=== PATIENT | male | born 1965 | race Caucasian/White ===

== ENCOUNTER 2016-10-05 17:44 | Inpatient (IN) | payer OTHER ==
[~2016-10-05] VITALS: Ht 175.3 cm; Wt 79.4 kg
[~2016-10-05 17:44] MED LIST: ASPI-612 PO; CLON0.1T14 PO; DIPH50CA37 PO; Gabapentin PO; HYDR-3895 PO; MULT-70 PO
[2016-10-05 20:00] VITALS: BP 116/79
--- NOTE | 2016-10-05 20:48 | NUR ---
Admission Note Pt is a 51 year old male admitted on 09/25/2016 for ETOH dependence, arrived on the unit at 2047 accompanied by FINANCE EFFECTIVENESS MANAGER. Pt is NKA, denies history of seizures. Pt was able to provide urine drug screen. Upon admission, CIWA 4, BP 115/79, pulse 89, temp 98.5, respirations 16, Spo2 96%, weight 175, height 59. Pt reports his primary care provider is Dr. Sellers in [place], [place]. Pt denies being hospitalized within the past 30 days. Pt is able to understand and respond to all questions pertaining to his hospitalizations. Substance Abuse History is as follows: ETOH Vodka 10-12 shots/daily, last intake on 10/05/2016 of 10 shots. Pt has been using at this rate for the past 3 weeks. Pt has been admitted to [facility] from August 21, 2016 and discharged on August 28, 2016 previously. Pt reports he did not go to t[place] after discharging from [facility], which led him to relapse a few weeks after, as reports by pt. Pt reports his trigger to consuming ETOH is d/t frustration. Pt longest sober period is 13 years from 2004 2016. Treatment history is as follows: 1986 [place], [place] 30 days 1993 [place], [place] - 6 months 2016 [facility] 08/21/2016 - 08/28/2016 PMH: Pt denies any past medical history or surgical history. Pt did not bring any medications from home. Pt denies using any medications at home. Pt represents with a lump on forehead and bruises around bilateral eyes d/t a fall experienced from jumping over wall at home. Pt states he did not go to the hospital after the fall. Pictures taken and placed in chart. Pt is alert/oriented x4, anxious, reports body aches, face flushed, respirations unlabored, PERRLA. Lung sounds clear, heart rate regular, denies SOB/chest pain, denies n/v/d. bowel sounds active x4, abdomens soft. Education provided regarding fall preventions in hospitals, substance abuse, hepatitis C and smoking cessation educational material provided at bedside. Pt oriented to room and encouraged to notify staff with any concerns. Safety measures in place, call light within reach, side rails up x2, bed locked and in low position. Will continue to monitor.
[2016-10-05] MEDS ORDERED: LOPERAMIDE HCL 2 MG CAPSULE PO PRN ×2 (21:00)
[2016-10-05] MEDS ORDERED: LORAZEPAM 2 MG/1 ML VIAL IM PRN (21:00)
[2016-10-05] MEDS ORDERED: ONDANSETRON 4 MG/2 ML VIAL IM PRN (21:00)
[2016-10-05] MEDS ORDERED: ONDANSETRON ODT 4 MG TAB.RAPDIS SL PRN (21:00)
[2016-10-05] MEDS ORDERED: HYDROXYZINE PAMOATE 25 MG CAPSULE PO PRN (21:00)
[2016-10-05] MEDS ORDERED: DICYCLOMINE HCL 20 MG TABLET PO PRN (21:00)
[2016-10-05] MEDS ORDERED: CLONIDINE HCL 0.1 MG TABLET PO PRN (21:00)
[2016-10-05] MEDS ORDERED: MAG HYDROX/AL HYDROX/SIMETH 30 ML LIQUID UDC PO PRN (21:00)
[2016-10-05] MEDS ORDERED: ACETAMINOPHEN 325 MG TABLET PO PRN (21:00)
[2016-10-05] MEDS ORDERED: diphenhydrAMINE 50 MG CAPSULE PO PRN (21:00)
[2016-10-05] MEDS ORDERED: MAGNESIUM HYDROXIDE 30 ML LIQUID UDC PO PRN (21:00)
[2016-10-05] MEDS ORDERED: LORAZEPAM 1 MG TABLET PO PRN ×2 (21:00)
[2016-10-05] MEDS ORDERED: MIRALAX 17 GM POWD.PACK PO PRN (21:00)
[2016-10-05] MEDS ORDERED: THIAMINE HCL 200 MG/2 ML VIAL IM ONE (21:00)
[2016-10-05] MEDS: GABAPENTIN 300 MG CAPSULE PO SCH (21:51)
[2016-10-05 22:01] LABS: *AMPHETAMINE, URINE NEGATIVE (NEGATIVE); *BARBITURATE, URINE NEGATIVE (NEGATIVE); *CANNABINOID, URINE NEGATIVE (NEGATIVE); *COCCAINE, URINE NEGATIVE (NEGATIVE); *OPIATE, URINE NEGATIVE (NEGATIVE); *PHENCYCLIDINE SCREEN,URINE NEGATIVE (NEGATIVE)
[2016-10-05] MEDS: IBUPROFEN 400 MG TABLET PO PRN (22:24)
--- NOTE | 2016-10-05 22:24 | NUR ---
PRN Administration Pt reported pain in neck and knees, rated 5/10. Motrin 400mg PRN administered. Safety measures in place. Will continue to monitor.
--- NOTE | 2016-10-05 22:55 | NUR ---
PRN Reassessment - PRN Administration 1565 Upon reassessment, pt reports pain subsiding in neck and knees, rated 2/10. Pt requested aid to help him sleep. Benadryl 50mg PRN administered. Safety measures in place. Will continue to monitor
[2016-10-05 23:48] LABS: ALBUMIN 3.3 g/dL (3.4-5.0); BILIRUBIN,TOTAL 0.7 mg/dL (0.2-1.0); CALCIUM 7.7 mg/dL (8.5-10.1); CREATININE 1.2 mg/dL (0.6-1.3); POTASSIUM 2.9 mmol/L (3.5-5.1); TOTAL PROTEIN, SERUM 6.8 g/dL (6.4-8.2)
--- NOTE | 2016-10-05 23:55 | NUR ---
PRN Reassessment Upon reassessment, pt is in bed, eyes closed, resting, respirations unlabored, no s/s of acute distress noted. Safety measures in place. Will continue to monitor.
[2016-10-05 23:58] LABS: BASOPHILS % (AUTO) 0.4 % (0.0-2.0); EOSINOPHILS # (AUTO) 0.1 K/uL (0.0-0.7); EOSINOPHILS % (AUTO) 0.7 % (0.0-7.0); HEMATOCRIT 42.6 % (36.7-47.1); HEMOGLOBIN 15.1 g/dL (12.5-16.3); HIV-1 p24 ANTIGEN NON REACTIVE (NONREACTIVE); HIV-1/2 ANTIBODY NON REACTIVE (NONREACTIVE); LYMPHOCYTES # (AUTO) 2.1 K/uL (20.0-40.0); LYMPHOCYTES % (AUTO) 25.7 % (20.5-51.5); MEAN CORPUSCULAR HEMOGLOBIN 34.4 uug (23.8-33.4); MEAN CORPUSCULAR HGB CONC 36 g/dL (32.5-36.3); MONOCYTES # (AUTO) 0.6 K/uL (2.0-10.0); MONOCYTES % (AUTO) 6.9 % (0.0-11.0); NEUTROPHILS # (AUTO) 5.5 K/uL (1.8-8.9); NEUTROPHILS % (AUTO) 66.3 % (38.5-71.5); PLATELET COUNT (AUTO) 257 K/uL (152-348); RED BLOOD CELL COUNT(AUTO) 4.39 MIL/uL (4.06-5.63); RED CELL DISTRIBUTION WIDTH 14.1 % (12.1-16.2); WHITE BLOOD COUNT (AUTO) 8.3 K/uL (3.6-10.2)
[2016-10-06] VITALS: BP 126/80
[2016-10-06] LABS: THYROID STIMULATING HORMONE 1.623 mIU/mL (0.358-3.740)
--- NOTE | 2016-10-06 | NUR ---
Vital Signs BP 126/80, pulse 86, respirations 16, SpO2 97%, temp 98.1, no reports of pain 0/10. CIWA assessment deferred d/t pt sleeping, to assess while pt is awake as ordered. Safety measures in place, Will continue to monitor
--- NOTE | 2016-10-06 03:59 | NUR ---
Potassium Value Notified Dr. Thomas of Potassium 2.9 Administered K-Dur 40 MEQ, per MD orders. Safety measures in place. Will continue to monitor.
[2016-10-06 04:00] VITALS: BP 111/72
[2016-10-06] MEDS ORDERED: POTASSIUM CHLORIDE 20 MEQ TAB.PRT.SR PO ONE ×2 (04:00→09:45)
--- NOTE | 2016-10-06 04:00 | NUR ---
Vital Signs BP 111/72, pulse 104, respirations 16, SpO2 98%, temp 98.2, no reports of pain 0/10. CIWA assessment deferred d/t pt sleeping, to assess while pt is awake as ordered. Safety measures in place, Will continue to monitor
[2016-10-06] MEDS ORDERED: POTASSIUM CHLORIDE 20 MEQ TAB.PRT.SR ONE (04:05)
--- NOTE | 2016-10-06 07:00 | NUR ---
End of Shift Pt is a 51 year old male admitted on 10/05/2016 for ETOH dependence, placed on 4 day Ativan taper to be started today. Pt reported on consuming vodka 10-12 shots/daily, last intake of 10 shots on . NKA, regular diet, fall/seizure precautions denies history of seizures and full code. Pt denies PMH. Pt has a lump on forehead and bruises around bilateral eyes d/t a fall experienced from jumping over wall at home. Pt states he did not go to the hospital after the fall. Pictures taken and placed in chart. During shift, Vitamin B1 injection administered, Motrin 400mg PRN administered for neck and knee pain, effective. Potassium of 2.9 supplemented with K-Dur 40 MEQ, per orders. Benadryl 50mg PRN administered for sleep. Pt slept for 6 hours, intake of 1242 ml PO and voids x2. Safety measures in place, call light within reach, side rails up x2, bed locked and in low position. Endorsed to day shift nurse.
--- NOTE | 2016-10-06 07:17 | NUR ---
Start of Shift Notes: Received patient in the room. Alert and oriented x 4. Verbally responsive. Able to make his needs known. Respirations even and unlabored. No SOB noted. Skin warm and dry to touch. Noted with presence of bruising on the face. Denies any complains of pain or discomfort. Appears flushed with BUE tremors. Abdomen soft and non-distended with (+) BS in all 4 quadrants. No complains of N/V/D or constipation noted. No complains of abdominal discomfort. Voids independently. Denies any complains of bladder pain. Ambulatory ad steven with steady gait. Patient is a 51 year old male admitted for ETOH dependence who was placed on a 4-day Ativan taper that will be started today. Denies any past medical hx. NKA. FULL CODE. Regular diet. On fall and seizure precautions. PRN Motrin and Benadryl were given during the night. K+ level 2.9L. Replaced with 40 meq of K+ chloride. No adverse reactions noted. Educated patient on his current plan of care for the day and his medication regimen. Encouraged oral fluid intake and encouraged group participation to learn new skills to prevent relapse. Will continue to monitor closely. Safety precautions in place.
[2016-10-06 08:00] VITALS: BP 136/88
[2016-10-06] MEDS ORDERED: TUBERCULIN,PURIF.PROT.DERIV. 5 TU/0.1 ML TEST ID ONE (09:00)
[2016-10-06] MEDS: FOLIC ACID 1 MG TABLET PO SCH (09:24)
[2016-10-06] MEDS: THIAMINE HCL 100 MG TABLET PO SCH (09:24)
[2016-10-06] MEDS: MULTIVITAMINS,THERAPEUTIC TABLET PO SCH (09:24)
[2016-10-06] MEDS: LORAZEPAM 1 MG TABLET PO SCH ×3 (09:24→21:34)
[2016-10-06] MEDS: GABAPENTIN 300 MG CAPSULE PO SCH ×3 (09:24→21:34)
[2016-10-06] MEDS: IBUPROFEN 400 MG TABLET PO PRN ×2 (09:24→23:28)
--- NOTE | 2016-10-06 09:24 | NUR ---
Motrin 400 mg PO given: Patient was given Motrin 400 mg PO as ordered for neck pain 10/28. Non-pharmacological interventions were ineffective.
--- NOTE | 2016-10-06 10:24 | NUR ---
Re-assessment: Per patient, PRN Motrin was effective in reducing neck pain. PL 06/30.
--- NOTE | 2016-10-06 10:28 | NUR ---
KcL 40 meq PO given: Patient was given KcL 40meq PO at this time for K+ replacement.
[2016-10-06 12:00] VITALS: BP 129/90
[2016-10-06 16:00] VITALS: BP 126/86
--- NOTE | 2016-10-06 19:03 | NUR ---
End of Shift Notes: Patient is a 51 year old male admitted for ETOH dependence who was placed on a 4-day Ativan taper as ordered which was started today. Patient is tolerating taper well. No adverse reactions noted. Prior to admission, patient was using 10-12 shots of Vodka x 3 weeks. VS monitored closely q 4 hours. No significant abnormalities noted in the patients VS noted. Withdrawal symptoms were closely monitored. Patient presented with tremors, headache, and sweating. Initial CIWA 7. Last CIWA 3. Per patient, Ativan has been helping him with his withdrawal symptoms. Labs reviewed. K+ level 2.9L. replaced with 40meq PO as ordered during the shift. No s/s of hypokalemia noted. Motrin 400 mg PO given for complain of 5/10 neck pain and headache with help after 1 hour. Oral fluids encouraged. Unable to participate in group at this time due to his withdrawal symptoms. All needs met and attended. On fall and seizure precautions. Safety precautions in place. Will continue to monitor closely.
--- NOTE | 2016-10-06 19:30 | NUR ---
START OF SHIFT-- Patient is a 51 year old male admitted for ETOH dependence who was placed on a 4-day Ativan taper as ordered which was started today.Pt denies any PMH. Patient is tolerating taper well. No adverse reactions noted. VS have been stable. Last CIWA 3. Oral fluids encouraged.Pt has been unable to participate in groups during the day due to his withdrawal symptoms. All needs met and attended. On fall and seizure precautions. Safety precautions in place. Will continue to monitor closely.
[2016-10-06 20:00] VITALS: BP 147/92
--- NOTE | 2016-10-06 23:29 | NUR ---
PRN MOTRIN GIVEN ORDERED FOR C/O HEADACHE,PER PT REQUEST.PAIN LEVEL 6/10.WILL MONITOR.
[2016-10-07] VITALS: BP 135/84
--- NOTE | 2016-10-07 00:30 | NUR ---
PRN F/U-- HEADACHE RELIEVED.PT RESTING IN BED WITH EYES CLOSED.NO S/S OF DISTRESS NOTED.
[2016-10-07 04:00] VITALS: BP 115/80
--- NOTE | 2016-10-07 06:46 | NUR ---
END OF SHIFT-- Patient is a 51 year old male admitted for ETOH dependence who was placed on a 4-day Ativan taper as ordered which was started today. Patient is tolerating taper well. No adverse reactions noted. VS have been stable. Last CIWA 1. Oral fluids encouraged.PRN Motrin given for pain.Pt is med compliant. All needs met and attended.Pt slept 6 hrs;fluid intake was 1400 mls,voided x 3. On fall and seizure precautions. Safety precautions in place. Will continue to monitor .
--- NOTE | 2016-10-07 07:59 | NUR ---
Start of shift note; Patient is AOX4. Patient is a 51 y/o male admitted on 10/05/16 for ETOH dependence. Patient is on full code status, regular diet, NKA. Patient was placed on a 4 day Ativan taper, no adverse reactions noted. Educated patient regarding treatment plan and medication regime, verbalized understanding. Patient is on fall and seizure precaution. All safety measures secured. Will continue to monitor patient.
[2016-10-07 08:00] VITALS: BP 130/83
[2016-10-07 08:06] LABS: BASOPHILS # (AUTO) 0.1 K/uL (0.0-8.0); BASOPHILS % (AUTO) 0.9 % (0.0-2.0); EOSINOPHILS # (AUTO) 0.2 K/uL (0.0-0.7); EOSINOPHILS % (AUTO) 2.6 % (0.0-7.0); HEMATOCRIT 40.2 % (36.7-47.1); HEMOGLOBIN 14.1 g/dL (12.5-16.3); LYMPHOCYTES # (AUTO) 1.7 K/uL (20.0-40.0); LYMPHOCYTES % (AUTO) 23.6 % (20.5-51.5); MEAN CORPUSCULAR HEMOGLOBIN 34.5 uug (23.8-33.4); MEAN CORPUSCULAR HGB CONC 35 g/dL (32.5-36.3); MEAN CORPUSCULAR VOLUME 98.3 fL (73.0-96.2); MONOCYTES # (AUTO) 0.5 K/uL (2.0-10.0); MONOCYTES % (AUTO) 7.5 % (0.0-11.0); NEUTROPHILS # (AUTO) 4.5 K/uL (1.8-8.9); NEUTROPHILS % (AUTO) 65.4 % (38.5-71.5); PLATELET COUNT (AUTO) 196 K/uL (152-348); RED BLOOD CELL COUNT(AUTO) 4.09 MIL/uL (4.06-5.63); RED CELL DISTRIBUTION WIDTH 14.2 % (12.1-16.2)
[2016-10-07 08:17] LABS: HCV AB <0.1 s/co ratio (0.0-0.9); HEPATITIS B CORE AB, IgM Negative (Negative); HEPATITIS B SURFACE AG Negative (Negative)
[2016-10-07 08:17] LABS: CALCIUM 7.7 mg/dL (8.5-10.1); CREATININE 1.1 mg/dL (0.6-1.3); MAGNESIUM 2.2 mg/dL (1.8-2.4); PHOSPHOROUS 3.2 mg/dL (2.5-4.9); POTASSIUM 4.1 mmol/L (3.5-5.1)
[2016-10-07] MEDS: GABAPENTIN 300 MG CAPSULE PO SCH ×3 (08:50→21:08)
[2016-10-07] MEDS: MULTIVITAMINS,THERAPEUTIC TABLET PO SCH (08:50)
[2016-10-07] MEDS: LORAZEPAM 1 MG TABLET PO SCH ×4 (08:51→21:08)
[2016-10-07] MEDS: THIAMINE HCL 100 MG TABLET PO SCH (08:51)
[2016-10-07] MEDS: FOLIC ACID 1 MG TABLET PO SCH (08:51)
[2016-10-07 12:00] VITALS: BP 140/98
[2016-10-07 16:00] VITALS: BP 138/95
--- NOTE | 2016-10-07 18:21 | NUR ---
End of shift note; Patient is AOX4.Patient is a 51 y/o male admitted on 10/05/16 for ETOH dependence. Patient is on full code status, regular diet, NKA. Patient was placed on a 4 day Ativan taper, no adverse reactions noted. Educated patient regarding treatment plan and medication regime, verbalized understanding. Patient is on fall and seizure precaution. All safety measures secured. Patient remained compliant with treatment plan and medication regime. Medications were effective in reducing withdrawal symptoms. Met all needs.
--- NOTE | 2016-10-07 19:30 | NUR ---
START OF SHIFT NOTE : Patient is a 51 y/o male admitted on 10/05/16 for ETOH dependence. Patient is on full code status, regular diet, NKA. Patient was placed on a 4 day Ativan taper, started on 10/06/2016, no adverse reactions noted. Educated patient regarding treatment plan and medication regime, verbalized understanding. Patient is on fall and seizure precaution. Safety measures in place : bed on lowest position with side rails x2 up for safety, call light within reach. Will continue to monitor closely and offer help.
[2016-10-07 20:00] VITALS: BP 144/97
[2016-10-08] VITALS: BP 146/89
--- NOTE | 2016-10-08 06:47 | NUR ---
END OF SHIFT NOTE : Patient is a 51 y/o male admitted on 10/05/16 for ETOH dependence. Patient is on full code status, regular diet, NKA. Patient was placed on a 4 day Ativan taper, started on 10/06/2016, no adverse reactions noted. Educated patient regarding treatment plan and medication regime, verbalized understanding. Patient is on fall and seizure precaution. Pt remains compliant with the treatment plan. No PRNs were given during my shift. V/S remain WNL. RR=16, even and unlabored, lungs clear upon auscultation, abdomen soft and non- distended. Pt denies nausea, vomiting and diarrhea. LAST CIWA=1 at 0400 , INTAKE= 100 ml, voided x 1, slept 5 hours. Safety measures in place : bed on lowest position with side rails x2 up for safety, call light within reach. Will continue to monitor closely and offer help.
--- NOTE | 2016-10-08 07:39 | NUR ---
BEGINNING OF SHIFT Patient endorsement report received from contract attorney nurse, all pertinent information discussed. patient is a 51 year old male with NKA, and full code, with admitting Dx: ETOH dependence. Patient currently on a 5 day Ativan taper as ordered and is scheduled to begin day 3 of taper. Per contract attorney report patient received no prns, Patient with last ciwa score of: 1. Per contract attorney patient slept for 5 hours. Patient received awake, alert and oriented x4, vital signs stable. patient educated regarding plan of care for the day and medication regimen, safety measures in place. will continue to monitor.
[2016-10-08 08:10] VITALS: BP 138/88
[2016-10-08] MEDS: FOLIC ACID 1 MG TABLET PO SCH (08:40)
[2016-10-08] MEDS: GABAPENTIN 300 MG CAPSULE PO SCH ×2 (08:40→14:04)
[2016-10-08] MEDS: MULTIVITAMINS,THERAPEUTIC TABLET PO SCH (08:41)
[2016-10-08] MEDS: THIAMINE HCL 100 MG TABLET PO SCH (08:41)
[2016-10-08] MEDS: LORAZEPAM 1 MG TABLET PO SCH ×3 (08:41→21:45)
[2016-10-08 12:19] VITALS: BP 133/85
[2016-10-08] MEDS ORDERED: METHYL SALICYLATE/MENTHOL CREAM 28 GM TUBE TOP PRN (13:30)
[2016-10-08 17:40] VITALS: BP 144/98
--- NOTE | 2016-10-08 18:45 | NUR ---
END OF SHIFT Patient alert and oriented x4, vital signs were stable during shift. Patient compliant with therapeutic plan of care. Patient with admitting Dx: ETOH dependence. Patient placed an Ativan taper and is currently on day 3 of taper, Well tolerated, no ASE noted. Patient encouraged adequate PO fluid intake as tolerated. 0900 assessment patient presented with tremors that can be felt but not seen, and anxiety with ciwa score of: 3; 1300 assessment patient presented with: tremors that can be felt but not seen and mild anxiety with ciwa score of: 3; 1700 assessment patient presented with; tremors that can be felt but not seen, and mild anxiety with ciwa score of: 3. Administered no PRNs during shift. Abdomen is soft and non distended, bowel sounds heard in all quadrants. Patient encouraged to attend group therapies/sessions to learn new coping skills to prevent relapse, noted attending and participating, denies SI/HI, noted self motivated towards sobriety. Patients safety measures as in place. All needs met and rendered, will continue to monitor closely. Patient endorsed to cook night nurse all pertinent information discussed.
--- NOTE | 2016-10-08 19:15 | NUR ---
START OF SHIFT Received 51 year old male patient admitted on 10/05/16 for ETOH dependency. Pt is full code with NKA. He denies PMHx. He reports drinking ETOH (vodka) 10-12 shots daily for 3 weeks at this rate. Last dose was 10 shots on 10/05/16. Pt denies history of seizures. Pt placed on 4 day Ativan taper and tolerating well. Per endorsement, pt noted with bruises on bilateral eyes, and lump on forehead. Pt did not receive or request PRN medications. Pt is alert and oriented x4, breathing is even and unlabored, safety measures in place. Will continue to monitor.
[2016-10-08 20:00] VITALS: BP 142/105
[2016-10-08] MEDS ORDERED: GABAPENTIN 300 MG CAPSULE PO SCH (21:00)
--- NOTE | 2016-10-08 21:49 | NUR ---
PRN CLONIDINE Pt noted with increased BP: 142/105 HR: 105. Pt denies headache or dizziness. PRN Clonidine administered as ordered. Will continue to monitor effectiveness of medication.
[2016-10-08 22:49] VITALS: BP 142/99
--- NOTE | 2016-10-08 22:49 | NUR ---
PRN CLONIDINE REASSESSMENT PRN medication effective. BP decreased 142/99 HR:97. Breathing is even and unlabored, respirations 16. Safety measures in place. Will continue to monitor.
[2016-10-09] VITALS: BP 143/96
--- NOTE | 2016-10-09 | NUR ---
CIWA DEFERRED CIWA deferred d/t pt lying in bed with eyes closed and is sleeping. No facial grimacing noted. Respirations 16. Breathing even and unlabored. Safety measures in place. Will monitor.
[2016-10-09 04:00] VITALS: BP 137/86
--- NOTE | 2016-10-09 04:00 | NUR ---
CIWA DEFERRED CIWA deferred d/t pt lying in bed with eyes closed and is sleeping. No facial grimacing noted. Respirations 16. Breathing even and unlabored. Safety measures in place. Will continue to monitor.
--- NOTE | 2016-10-09 07:14 | NUR ---
END OF SHIFT Pt is a 51 year old male patient admitted on 10/05/16 for ETOH dependency. Pt is full code with NKA. He denies PMHx. At 2149 pt received PRN Clonidine d/t increased BP. PRN medication was effective, BP and HR decreased. He slept a total of 7 hrs, Intake: 1091 mL, Void: x1, BM: 0, CIWA:2. Pt is alert and oriented x4, breathing is even and unlabored, safety measures in place. Endorsed to oncoming shift.
--- NOTE | 2016-10-09 08:16 | NUR ---
BEGINNING OF SHIFT Patient endorsement report received from silver miner blasting nurse, all pertinent information discussed. patient is a 51 year old male with NKA, and full code, with admitting Dx: ETOH dependence. Patient currently on a 5 day Ativan taper as ordered and is scheduled to begin day 4 of taper. Per silver miner blasting report patient received prn: clonidine medication effective as per silver miner blasting. Patient with last ciwa score of: 2. Per silver miner blasting patient slept for 7 hours. Patient received awake, alert and oriented x4, vital signs stable. patient educated regarding plan of care for the day and medication regimen, safety measures in place. will continue to monitor.
[2016-10-09 08:24] VITALS: BP 127/90
[2016-10-09] MEDS ORDERED: GABAPENTIN 300 MG CAPSULE PO SCH (09:00)
[2016-10-09] MEDS: LORAZEPAM 1 MG TABLET PO SCH ×2 (09:05→20:47)
[2016-10-09] MEDS: FOLIC ACID 1 MG TABLET PO SCH (09:06)
[2016-10-09] MEDS: THIAMINE HCL 100 MG TABLET PO SCH (09:06)
[2016-10-09] MEDS: MULTIVITAMINS,THERAPEUTIC TABLET PO SCH (09:06)
[2016-10-09] MEDS ORDERED: AMLODIPINE 5 MG TABLET PO SCH (13:00)
[2016-10-09 13:26] VITALS: BP 137/91
[2016-10-09] MEDS: GABAPENTIN 300 MG CAPSULE PO SCH ×2 (14:37→20:47)
[2016-10-09] MEDS: AMLODIPINE 5 MG TABLET PO SCH (14:39)
[2016-10-09 17:52] VITALS: BP 134/98
--- NOTE | 2016-10-09 18:55 | NUR ---
END OF SHIFT Patient alert and oriented x4, vital signs were stable during shift. Patient compliant with therapeutic plan of care. Patient with admitting Dx: ETOH dependence. Patient placed an Ativan taper and is currently on day 4 of taper, Well tolerated, no ASE noted. Patient encouraged adequate PO fluid intake as tolerated. 0900 assessment patient presented with tremors that can be felt but not seen, and anxiety with ciwa score of: 3; 1300 assessment patient presented with: tremors that can be felt but not seen and mild anxiety with ciwa score of: 3; 1700 assessment patient presented with; tremors that can be felt but not seen, and mild anxiety with ciwa score of: 3. Administered no PRNs during shift. Abdomen is soft and non distended, bowel sounds heard in all quadrants. Patient encouraged to attend group therapies/sessions to learn new coping skills to prevent relapse, noted attending and participating, denies SI/HI, noted self motivated towards sobriety. Patients safety measures as in place. All needs met and rendered, will continue to monitor closely. Patient endorsed to shift coordinator nurse all pertinent information discussed.
[2016-10-09 20:00] VITALS: BP 129/82
--- NOTE | 2016-10-09 20:00 | NUR ---
Start of Shift Pt is 51-year old, male, admitted for ETOH dependency. Pt is Full Code, on Regular Diet and with NKA. Pt denies PMHx. Pt reports drinking ETOH (vodka) 10-12 shots daily for 3 weeks. Pt denies history of seizures. Pt placed on 4-day Ativan taper and tolerating well. Last dose is 10/09/2016 at 2100. Pt tolerates taper well. Pt noted with lump on forehead. Pt is AAOx4, with mild anxiety noted. With flushed skin observed. Pt is ambulatory with steady gait, with no open skin noted. No SOB noted, not in respi distress. Fall, universal, seizure and safety prec in place. Call light within reach. Kept pt warm, dry and comfortable. All needs met. Latest CIWA=2. Will continue to monitor pt.
[2016-10-10] VITALS: BP 132/85
--- NOTE | 2016-10-10 04:05 | NUR ---
RN note Pt refused 0400 Vital Signs check and CIWA assessment despite explanation of risks and benefits. RR=14. No SOB noted. Will continue to monitor pt.
--- NOTE | 2016-10-10 07:16 | NUR ---
End of Shift Pt is 51-year old, male, admitted for ETOH dependency. Pt is Full Code, on Regular Diet and with NKA. Pt denies PMHx. Pt reports drinking ETOH (vodka) 10-12 shots daily for 3 weeks. Pt denies history of seizures. Pt placed on 4-day Ativan taper and tolerating well. Last dose is 10/09/2016 at 2100. Pt tolerates taper well. Pt noted with lump on forehead. Pt is AAOx4, with mild anxiety noted. With flushed skin observed. Pt is ambulatory with steady gait, with no open skin noted. No SOB noted, not in respi distress. Fall, universal, seizure and safety prec in place. Call light within reach. Kept pt warm, dry and comfortable. All needs met. Latest CIWA=2, slept for 6 hours. Endorsed to AM shift nurse for continuity of care.
--- NOTE | 2016-10-10 07:30 | NUR ---
Start of Shift Report received from technical testing engineer nurse. Pt is 51-year old, male, admitted for ETOH dependency. Pt is Full Code, on Regular Diet and denies any food or drug allergies pt is on fall and seizure precautions. Pt denies PMHx. Pt reports drinking ETOH (vodka) 10-12 shots daily for 3 weeks. Pt denies history of seizures. Pt placed on 4-day Ativan taper which has been completed. Pt tolerated taper well. Pt noted with lump on forehead. Pt did not receive any PRN medication last night his last CIWA was a 2. Pt is AAOx4, with mild anxiety noted. Pt is ambulatory with steady gait, with no open skin noted. Call light within reach all safety measures in place.
[2016-10-10 08:00] VITALS: BP 124/84
[2016-10-10] MEDS: THIAMINE HCL 100 MG TABLET PO SCH (08:45)
[2016-10-10] MEDS: AMLODIPINE 5 MG TABLET PO SCH (08:46)
[2016-10-10] MEDS: MULTIVITAMINS,THERAPEUTIC TABLET PO SCH (08:46)
[2016-10-10] MEDS: GABAPENTIN 300 MG CAPSULE PO SCH ×3 (08:46→21:02)
[2016-10-10] MEDS: FOLIC ACID 1 MG TABLET PO SCH (08:46)
[2016-10-10 12:00] VITALS: BP 132/86
[2016-10-10] MEDS: IBUPROFEN 600 MG TABLET PO PRN ×2 (14:13→21:08)
[2016-10-10 16:00] VITALS: BP 111/73
--- NOTE | 2016-10-10 19:11 | NUR ---
End Of Shift Report given to shift coordinator. Pt is 51-year old, male, admitted for ETOH dependency. Pt is Full Code, on Regular Diet and denies any food or drug allergies pt is on fall and seizure precautions. Pt denies PMHx. Pt denies history of seizures. Pt placed on 4-day Ativan taper which has been completed. Pt tolerated taper well. Pt noted with lump on forehead. Pt Received PRN Motrin 600mg for head ache. Medication was effective. Pts last CIWA was a 2. Pt stated that the medications are working well at controlling the withdrawal symptoms, evidenced by low assessment scores during the day ranging from 4-2. Pt ate all of his meals. Pt remains compliant with the treatment plan. Pts vital signs within normal limits, A/Ox4, denies chest pain. Respirations even unlabored, lungs clear upon auscultation abdomen soft and non- distended. Pt denies nausea, vomiting and diarrhea. Pt total fluid intake was 3071ml with 5 voids and 2 stool. Safety measures in place, call light within reach. All pertinent information discussed with shift coordinator, endorsement given to shift coordinator nurse.
[2016-10-10 20:00] VITALS: BP 131/87
--- NOTE | 2016-10-10 20:00 | NUR ---
2000 Patient received awake, alert and lying in low semi-fowlers position of comfort, watching television. Patient responds to nurse's greeting and introduction with direct eye contact, a smile and, " Hi, I'm doing much better than last week". Patient is oriented to person, place, day, date, time and his personal situation. Patient's overall color is pink and his skin is warm, dry and intact. Patient noted to have healing, intact moderate-sized, bruised bump on his forehead, near the middle part. Patient also noted to have healing bruised periorbital areas bilaterally. Patient states, " Oh, you should have seen me last week. The bruises and my head bump were way worse and darker!" Patient states that he fell while he was inebriated. Patient's lung sounds are clear bilaterally and active bowel sounds are noted X 4 abdominal Quads, per auscultation. Patient states that he has been eating and taking fluids ad steven with no real gastric issues at this time and he states further that he has been going to [email or web address] consistently for the most part. Vital signs are: 98.4-99-18 131/87, O2 Sat 98%, CIWA 2. Patient was admitted on 10/05/16 for Alcohol withdrawal and he has recently completed a 4-Day Ativan medication taper. Patient denies any pain or other discomforts at this time and he offers no requests for anything. Fall/Precautions continues. Patient is friendly, cooperative and verbally appropriate when nurse interacts with him and he moves all his extremities fully WNL. Bed is locked and in lowest position, bed rails are up X 2 and call light within patient's easy reach.
--- NOTE | 2016-10-10 21:08 | NUR ---
PRN MEDICATION: Prn Motrin 600 mg p.o. given per patient's request for increasing neck pain, 3-4/10 pain scale. Patient states, " I want to catch it early, before it gets to be like a 6, which it was last night".
--- NOTE | 2016-10-10 22:08 | NUR ---
REASSESSMENT PRN MEDICATION: Patient is sleeping soundly with eyes closed and respirations quiet, even, unlabored at 14.
[2016-10-11] VITALS: BP 121/78
--- NOTE | 2016-10-11 04:00 | NUR ---
Patient refused to be awakened for V/S at this time. Respirations regular, unlabored at 12.
--- NOTE | 2016-10-11 06:00 | NUR ---
0600 Patient slept a total of 7 hours and he was up to the bathroom for 2 voids and no stools. Total intake was 1,296 ml p.o. Prn medication given noted separately per floor protocol. V/SS afebrile, CIWA 2. Patient is presently sleeping comfortably in stable condition with eyes closed and respirations even, unlabored at 12.
--- NOTE | 2016-10-11 07:47 | NUR ---
START OF SHIFT Received patient from evening or night nurse supervisor nurse. 51 year old male, admitted on 10/05/16 for ETOH withdrawals. Pt is full code regular diet on fall and seizure precautions. NKDA/NKFA. Patient has completed ordered 4 day Ativan taper. Most recent CIWA is 2. Denies medical history. V/S remain WNL. PRN Motrin administered and effective. Pt slept for 7 hours. Skin is intact, but pt presents with bilateral bruising around eyes and lump on forehead related to fall prior to admission, healing as expected. Denies pain. A/O x4. Pt is currently sleeping in bed. All safety measures in place per hospital policy. Bed in lowest position, side rails up x2 and padded, call-light within reach. Will continue to monitor.
[2016-10-11 08:13] VITALS: BP 121/78
[2016-10-11] MEDS: THIAMINE HCL 100 MG TABLET PO SCH (09:04)
[2016-10-11] MEDS: MULTIVITAMINS,THERAPEUTIC TABLET PO SCH (09:04)
[2016-10-11] MEDS: GABAPENTIN 300 MG CAPSULE PO SCH ×3 (09:04→20:15)
[2016-10-11] MEDS: AMLODIPINE 5 MG TABLET PO SCH (09:04)
[2016-10-11] MEDS: FOLIC ACID 1 MG TABLET PO SCH (09:04)
[2016-10-11] MEDS: IBUPROFEN 600 MG TABLET PO PRN ×2 (09:07→20:15)
--- NOTE | 2016-10-11 09:07 | NUR ---
PRN MOTRIN Pt c/o 08/28 neck pain. Non pharmacological methods not effective to relieve pain. PRN Motrin administered as ordered, will reassess.
--- NOTE | 2016-10-11 10:07 | NUR ---
REASSESSMENT Pt denies pain at this time, medication was effective.
[2016-10-11 12:39] VITALS: BP 139/88
--- NOTE | 2016-10-11 13:33 | NUR ---
URINE COLLECTED FOR D/C Urine was collected and is being taken down to lab by ANIMAL CARE WORKER.
[2016-10-11 14:00] LABS: *AMPHETAMINE, URINE NEGATIVE (NEGATIVE); *BARBITURATE, URINE NEGATIVE (NEGATIVE); *CANNABINOID, URINE NEGATIVE (NEGATIVE); *COCCAINE, URINE NEGATIVE (NEGATIVE); *OPIATE, URINE NEGATIVE (NEGATIVE); *PHENCYCLIDINE SCREEN,URINE NEGATIVE (NEGATIVE)
[2016-10-11 17:47] VITALS: BP 136/85
--- NOTE | 2016-10-11 19:09 | NUR ---
END OF SHIFT Endorsed to [employer] developer nurse. 51 year old male, admitted on 10/05/16 for ETOH withdrawals. Pt is full code regular diet on fall and seizure precautions. Denies allergies. Patient has completed ordered 4 day Ativan taper. Most recent CIWA is 1 at 1700. Denies medical history. V/S remain WNL. PRN Motrin administered and effective. UDS collected, results are printed and in chart. Skin is intact, but pt presents with bilateral bruising around eyes and lump on forehead related to fall prior to admission, healing as expected, photos in chart. Denies pain. Pt attends group, verbalizes feelings and has adequate caloric intake. All safety measures in place per hospital policy. Bed in lowest position, side rails up x2 and padded, call-light within reach. Will continue to monitor.
[2016-10-11 20:00] VITALS: BP 130/86
--- NOTE | 2016-10-11 20:00 | NUR ---
2000 Patient received awake, alert and lying in low semi-stafford's position, watching television. Patient responds to nurse's greeting with a smile and " Hi, how are you tonight?" Patient is oriented to person, place, day, date, time and his personal situation. Patient states that he is happy about and is looking forward to his upcoming discharge tomorrow. Patient states that he is feeling better and better overall and he states further that he continues to follow his therapeutic plan and be compliant with his medication regimen as well as everything else that he is 'supposed to be doing here'. Patient continues to eat and take fluids ad steven with no gastric issues and he feels and observes that his periorbital bruising and bruised, intact forehead bump continue to heal well. Vital signs are: [id number] 130/86, O2 sat 98%, CIWA 1. Patient offers no requests at this time. Patient was admitted on 10/05/16 for Alcohol withdrawal and ordered Ativan medication taper has been completed. Patient is friendly, smiles easily, is cooperative and verbally appropriate when interacting with nurse. Bed is locked and in lowest position, bed rails are up X 2 and call light within patient's easy reach.
--- NOTE | 2016-10-11 20:15 | NUR ---
PRN MEDICATION: Prn Motrin 600 mg p.o. given per request for patient's c/o increasing right neck discomfort, 3-4/10 pain scale. Patient states, " I like to catch it before it gets too uncomfortable".
--- NOTE | 2016-10-11 21:15 | NUR ---
REASSESSMENT PRN MEDICATION: Patient is lying quietly watching television. Patient states that prn medication was effective, as neck discomfort at about 1/10 pain scale.
[2016-10-11] MEDS ORDERED: DIPH50CA37 PO (22:00)
[2016-10-11] MEDS ORDERED: Gabapentin PO (22:00)
[2016-10-11] MEDS ORDERED: AMLO5TAB2 PO (22:00)
[2016-10-11] MEDS ORDERED: METH28OI2 TOP (22:00)
[2016-10-11] MEDS ORDERED: HYDR-3895 PO (22:00)
[2016-10-11] MEDS ORDERED: Ibuprofen PO (22:00)
--- NOTE | 2016-10-12 | NUR ---
Patient refuses to be awakened for V/S at this time.
--- NOTE | 2016-10-12 04:00 | NUR ---
0400 Patient refuses to be awakened for V/S at this time.
--- NOTE | 2016-10-12 06:30 | NUR ---
0630 Patient slept a total of 7. 25 hours and he was up to the bathroom for 1 void and no stools.. Total intake was 500 ml p.o. Prn medication given noted separately per floor protocol. V/SS afebrile, CIWA 1. Patient is presently sleeping comfortably with eyes closed and respirations even, unlabored at 12. Patient is in stable condition at this time.
--- NOTE | 2016-10-12 07:10 | NUR ---
start of shift note: received pt from awake overnight counselor nurse pt is in stable condition at this time no s/s of pain or discomfort. pt is admitted to [facility] for ETOH withdrawal/dependence. pt's last ciwa 1. pt is set to discharge today will assist pt in discharging and will continue to meet pt's needs.
[2016-10-12 08:31] VITALS: BP 110/69
[2016-10-12] MEDS: AMLODIPINE 5 MG TABLET PO SCH (08:31)
[2016-10-12] MEDS: FOLIC ACID 1 MG TABLET PO SCH (08:31)
[2016-10-12] MEDS: MULTIVITAMINS,THERAPEUTIC TABLET PO SCH (08:31)
[2016-10-12] MEDS: THIAMINE HCL 100 MG TABLET PO SCH (08:31)
[2016-10-12] MEDS: GABAPENTIN 300 MG CAPSULE PO SCH (08:31)
--- NOTE | 2016-10-12 09:35 | NUR ---
Discharge note: pt left the unit in stable condition no s/s of pain or discomfort or any withdrawal symptoms. pt completed and tolerated taper well no A/R noted. pt teaching administered and pt verbalized understanding. pts personal belongings were returned. pt will be transferred home via private car.
== END 2016-10-12 09:35 | disposition home or self-care (01) | DRG 895 ==
LOC: SRC 20:13
PROVIDERS: ADMIT Internal Medicine; ATTEND Internal Medicine
DX: F10.230 Alcohol dependence with withdrawal, uncomplicated (principal); Y90.6 Blood alcohol level of 120-199 mg/100 ml; E87.6 Hypokalemia; E78.1 Pure hyperglyceridemia; I15.9 Secondary hypertension, unspecified; R73.9 Hyperglycemia, unspecified; S00.83XA Contusion of other part of head, initial encounter; S00.12XA Contusion of left eyelid and periocular area, initial encounter; S00.11XA Contusion of right eyelid and periocular area, initial encounter; W13.8XXA Fall from, out of or through other building or structure, initial encounter; Y92.89 Other specified places as the place of occurrence of the external cause; Z82.49 Family history of ischemic heart disease and other diseases of the circulatory system; Z80.9 Family history of malignant neoplasm, unspecified; Z82.61 Family history of arthritis; F17.210 Nicotine dependence, cigarettes, uncomplicated; F10.229 Alcohol dependence with intoxication, unspecified
CPT/HCPCS: 36415; 70030-TC; 80307; 83690; 83735; 84100; 84443; 85025; 86580; 86592; 86705; 86803; 87340; 87806; G0176; G6040-TC; J3411; Q0163